=== PATIENT | female | born 1955 ===

== ENCOUNTER 2020-11-15 10:46 | Outpatient (CLI) | payer OTHER ==
[~2020-11-15 10:46] MED LIST: LIPITOR20 MG PO
== END 2020-11-15 11:05 | disposition home or self-care (01) ==
LOC: SONOGRAMA 10:46
PROVIDERS: ATTEND Pathology Anatomic Pathology & Clinical Pathology
DX: E04.1 Nontoxic single thyroid nodule (principal)

== ENCOUNTER 2021-07-13 11:28 | Emergency (ER) | payer OTHER ==
[~2021-07-13] VITALS: Ht 152.4 cm; Wt 46.7 kg
== END 2021-07-13 13:53 ==
LOC: ER 11:28
DX: J04.0 Acute laryngitis (principal); Z88.1 Allergy status to other antibiotic agents